=== PATIENT | female | born 1985 | race Caucasian/White ===

== ENCOUNTER 2023-10-16 00:57 | Emergency (ER) | payer BC ==
[~2023-10-16] VITALS: Ht 162.6 cm; Wt 82.0 kg
[2023-10-16] MEDS: ONDANSETRON HCL 4MG/2ML INJ IV STA (01:01)
[2023-10-16] MEDS ORDERED: NICARDIPINE 50 MG in SODIUM CHLORIDE 0.9% 230 ML IV PRN (01:15)
[2023-10-16 01:27] VITALS: PULSE 58; RESP 26
[2023-10-16] MEDS ORDERED: PROPOFOL 200MG/20ML VIAL IV NR (01:30)
[2023-10-16 01:59] VITALS: O2SAT 100
[2023-10-16] MEDS: PROPOFOL 10MG/ML 100ML 100 ML IV SCH (01:59)
[2023-10-16] MEDS: NICARDIPINE 40 MG/200 ML PREMIX 200 ML IV PRN (02:00)
[2023-10-16] MEDS: PROPOFOL 200MG/20ML VIAL IV ONE (02:01)
[2023-10-16] MEDS: LEVETIRACETAM 1000MG PREMIX 100 ML IV ONE (02:01)
[2023-10-16] MEDS: SUCCINYLCHOLINE CHLORIDE 200MG/10ML IV ONE (02:02)
[2023-10-16] MEDS: ETOMIDATE 2MG/ML 10ML VIAL IV ONE (02:02)
[2023-10-16] MEDS: ONDANSETRON HCL 4MG/2ML INJ IV NR (02:05)
[2023-10-16 02:06] LABS: BASOPHILS % 0.4 % (0.0-2.0); EOSINOPHILS % 0.8 % (0.0-5.0); HEMATOCRIT. 37.2 % (36.0-48.0); HEMOGLOBIN. 12.2 g/dL (12.0-16.0); LYMPHOCYTES % 36.3 % (20.0-50.0); MEAN CORPUSCULAR HEMOGLOBIN 26.3 pg (28.0-32.0); MEAN CORPUSCULAR HGB CONC 32.7 g/dL (31.0-37.0); MEAN CORPUSCULAR VOLUME 80.3 fL (81.0-99.0); MEAN PLATELET VOLUME 8.5 fl (7.4-10.4); MONOCYTES % 5.4 % (2.0-8.0); NEUTROPHILS % 57.1 % (40.0-76.0); PLATELET 337 x1000/uL (130-400); RED BLOOD CELL COUNT 4.63 mill/uL (4.2-5.4); RED CELL DISTRIBUTION WIDTH 14.6 % (11.6-14.6); WHITE BLOOD COUNT 18.2 x1000/uL (4.5-11.0)
[2023-10-16 02:19] LABS: ALANINE AMINOTRANSFERASE 61 IU/L (10-49); ALBUMIN 3.9 g/dL (3.2-4.8); ASPARTATE AMINOTRANSFERASE 48 IU/L (<34); BILIRUBIN TOTAL 0.2 mg/dL (0.1-1.0); CALCIUM 8.1 mg/dL (8.7-10.4); CARBON DIOXIDE 21 mEq/L (21-32); CHLORIDE 103 mEq/L (98-107); CREATINE KINASE 91 IU/L (34-145); CREATININE 0.7 mg/dL (0.6-1.0); GLUCOSE 249 mg/dL (70-105); POTASSIUM 3.1 mEq/L (3.5-5.1); PROTEIN TOTAL 7.1 g/dL (6.0-8.3); SODIUM 132 mEq/L (136-145); UREA NITROGEN BLOOD 7 mg/dL (9-23)
[2023-10-16 02:26] LABS: HCG SCREEN NEGATIVE
[2023-10-16] MEDS ORDERED: MIDAZOLAM 100MG/100ML PMX 100 ML IV PRN (02:30)
[2023-10-16] MEDS ORDERED: MANNITOL 20% (20GM/100ML) BAG 500ML PREMIX IV ONE (02:30)
[2023-10-16 02:42] LABS: ETHANOL BLOOD < 10 mg/dL (<10); TROPONIN I HIGH SENSITIVITY < 4 ng/L (3.0-34)
[2023-10-16] MEDS: MANNITOL 20% 500 ML IV NR (02:50)
[2023-10-16] MEDS: MIDAZOLAM 100MG/100ML PMX 100 ML IV PRN (02:50)
[2023-10-16] MEDS: DEXAMETHASONE 10 MG/ML VIAL IV ONE (03:19)
[2023-10-16] MEDS: SODIUM CHLORIDE 3% 500 ML IV NR (03:40)
[2023-10-16 03:42] LABS: INR 0.9; PROTHROMBIN TIME 10.2 sec (9.6-11.0)
[2023-10-16] MEDS ORDERED: IOHEXOL-350 100 ML BOTTLE ONE (03:45)
[2023-10-16 04:15] VITALS: PULSE 107; RESP 24
[2023-10-16 04:26] VITALS: BP 105/54; PULSE 106; RESP 24; TEMP 98.3
== END 2023-10-16 04:25 | disposition short-term general hospital (02) ==
LOC: ER 00:57
DX: I67.1 Cerebral aneurysm, nonruptured (principal); I60.8 Other nontraumatic subarachnoid hemorrhage
CPT/HCPCS: 80053; 80320; 82550; 84703; 83690; 85025; 85610; 84484; 36415; 71045; 70496; 70498; 70450; 31500; 93005; 36556; 96368; 96365; 96366; 96375; 99291; Q9967; Z7610 ×7; J1953; J1100; J2250; J2405; J2704; 94002; 96361; 96367; G0480